=== PATIENT | female | born 1995 | race Caucasian/White ===

== ENCOUNTER 2018-07-26 10:46 | Emergency (ER) | payer MEDICAID ==
[~2018-07-26] VITALS: Ht 170.2 cm; Wt 66.2 kg
[2018-07-26 10:48] VITALS: BP 136/72; PULSE 94; RESP 18; Ht 170.2 cm; Wt 66.2 kg
[2018-07-26] MEDS ORDERED: CLIN300C10 PO (11:53)
--- NOTE | 2018-07-26 16:00 | ERD ---
ER Documentation Chief Complaint Chief Complaint RASH TO UNDER RIGHT EYE WITH ITCHING SINCE YESTERDAY HPI 23-year-old female presents with complaint of rash under her left eye with associated itching since yesterday. Denies any discharge from the eye, fevers, chills. Denies any vision troubles. Denies any treatments. States that the pain is currently resolved but she does still notice some erythema and edema. ROS All systems reviewed and are negative except as per history of present illness. Medications Home Meds Active Scripts Clindamycin Hcl* (Clindamycin Hcl*) 300 Mg Capsule, 300 MG PO TID for 7 Days, CAP Prov:MELQUIADES LEONARDO 07/26/18 Allergies Allergies: Coded Allergies: No Known Allergy (Unverified , 07/26/18) PMhx/Soc Medical and Surgical Hx: pt denies Medical Hx, pt denies Surgical Hx Hx Alcohol Use: No Hx Substance Use: No Hx Tobacco Use: No FmHx Family History: No diabetes, No coronary disease, No other Physical Exam Vitals Vital Signs Date Temp Pulse Resp B/P (MAP) Pulse Ox O2 O2 Flow FiO2 Time Delivery Rate 07/26/18 98.2 94 18 136/72 98 10:48 (93) Physical Exam Const: No acute distress Head: Atraumatic Eyes: Normal Conjunctiva. Mild erythema noted in the infra orbital region. Eyelid is not edematous or erythematous. EOMs are intact without any pain elicited. ENT: Normal External Ears, Nose and Mouth. Neck: Full range of motion. No meningismus. Resp: Clear to auscultation bilaterally Cardio: Regular rate and rhythm, no murmurs Abd: Soft, non tender, non distended. Normal bowel sounds Skin: No rashes or petechiae. Back: No midline or flank tenderness Ext: No cyanosis, or edema Neur: Awake and alert Psych: Normal Mood and Affect Results 24 hrs Laboratory Tests Test 07/26/18 11:39 POC Beta HCG, Qualitative NEGATIVE Procedures/MDM MDM: Patient's presentation is consistent with possible periorbital cellulitis. Patient given Rx for antibiotics. Have low suspicion for orbital cellulitis, bacterial conjunctivitis, orbital fracture, or any other emergent condition. At this time, patient is stable for discharge and outpatient management. I have instructed the patient to follow-up with his/her primary care physician in 1-2 days. I have discussed with the patient the possibility of needing to see a specialist for further workup and imaging studies if symptoms persist. I have instructed the patient to promptly return to the ER for any new or worsening symptoms including but not limited to increased pain, fever, nausea, vomiting, weakness or LOC. The patient and/or family expressed understanding of and agreement with this plan. All questions were answered. Home care instructions were provided. DISCLAIMER: Inadvertent spelling and grammatical errors are likely due to EHR/dictation soft zambrano use and do not reflect on the overall quality of patient care. Also, please note that the electronic time recorded on this note does not necessarily reflect the actual time of the patient encounter. Departure Diagnosis: Primary Impression: Periorbital cellulitis Condition: Stable Patient Instructions: Lin-Orbital Cellulitis Referrals: [facility] YOU HAVE RECEIVED A MEDICAL SCREENING EXAM AND THE RESULTS INDICATE THAT YOU DO NOT HAVE A CONDITION THAT REQUIRES URGENT TREATMENT IN THE EMERGENCY DEPARTMENT. FURTHER EVALUATION AND TREATMENT OF YOUR CONDITION CAN WAIT UNTIL YOU ARE SEEN IN YOUR DOCTORS OFFICE WITHIN THE NEXT 1-2 DAYS. IT IS YOUR RESPONSIBILITY TO MAKE AN APPOINTMENT FOR FOLOW-UP CARE. IF YOU HAVE A PRIMARY DOCTOR --you should call your primary doctor and schedule an appointment IF YOU DO NOT HAVE A PRIMARY DOCTOR YOU CAN CALL OUR PHYSICIAN REFERRAL HOTLINE AT IF YOU CAN NOT AFFORD TO SEE A PHYSICIAN YOU CAN CHOSE FROM THE FOLLOWING [facility] [id number] [facility] [address] [facility] [address] [address] [facility] [facility] [address] [facility] [address] [facility] [address] [facility]. [address] Additional Instructions: FOLLOW UP WITH YOUR PRIMARY CARE PHYSICIAN TOMORROW.Return to this facility if you are not improving as expected. MELQUIADES LEONARDO Jul 26, 2018 16:00
== END 2018-07-26 12:13 | disposition home or self-care (01) ==
LOC: FTE 10:46
DX: L03.213 Periorbital cellulitis (principal)
CPT/HCPCS: 81025; Z7502; 99283